=== PATIENT | male | born 2000 | race Two or more races ===

== ENCOUNTER 2024-07-10 16:57 | Emergency (ER) | payer MEDICAID, SELFPAY ==
[2024-07-10 17:19] VITALS: BP 140/81; PULSE 91; RESP 18; TEMP 37.1; O2SAT 96
--- NOTE | 2024-07-10 17:19 | XR_ITS ---
Examination: CT abdomen and pelvis without contrast. Coronal 3-D reconstructions. Sagittal 2-D reconstructions. Date and time of exam:July 10, 2024 1751 hrs. Indications: Generalized abdominal pain with vomiting, blood in stools beginning 4 days ago CTDI: vol (mGy): 5.01 DLP: (mGycm): 293 Technique: Axial images of the abdomen have been obtained, 3 mm slice thickness Intravenous contrast material has not been administered. Low dose protocols were performed. One or more of the following dose reduction techniques were used; automated exposure control, adjustment of the mA and/or KV according to patient size, use of iterative reconstruction technique. Findings: Fatty liver, no focal liver lesions No gallstones Spleen pancreas adrenal glands are unremarkable No renal or ureteral calculi, no hydronephrosis No bowel obstruction Normal appendix No diverticulitis Urinary bladder intact No prostatomegaly Impression: No acute process in the abdomen or pelvis
--- NOTE | 2024-07-10 17:19 | PD.EDRME ---
Rapid Medical Screening Exam RME Arrival date/time: 07/10/24 16:57 23-year-old male presents the emergency department complaints of abdominal pain Chief Complaint: Abdominal Pain Time Seen by Provider: 07/10/24 17:08 Vital signs: Vital Signs Temperature 98.8 F 07/10/24 17:19 Pulse Rate 91 07/10/24 17:19 Respiratory Rate 18 07/10/24 17:19 Blood Pressure 140/81 H 07/10/24 17:19 Pulse Oximetry (%) 96 07/10/24 17:19 Oxygen Delivery Method Room Air 07/10/24 17:19
[2024-07-10 17:57] LABS: Basophils % (Auto) 0 % (0-2.5); Eosinophils # (Auto) 0.1 Thou/mm3 (0.0-0.5); Eosinophils % (Auto) 1 % (0-10); Hematocrit 45.8 % (41.0-53.0); Immature Granulocytes % (Auto) 0 % (0-0); Immature Granulocytes Auto 0.02 Thou/mm3 (0.00-0.00); Lymphocytes # (Auto) 1.3 Thou/mm3 (1.0-4.8); Lymphocytes % (Auto) 16 % (10-50); Mean Corpuscular HGB Conc 34.9 g/dl (31.0-37.0); Mean Corpuscular Hemoglobin 31.7 pg (25.0-35.0); Mean Corpuscular Volume 91 fL (80-100); Monocytes # (Auto) 0.7 Thou/mm3 (0.0-0.8); Monocytes % (Auto) 8 % (0-12); Neutrophils % (Auto) 75 % (37-80); Nucleated Red Blood Cell % 0 /100 WBC (0); Platelet Count 259 Thou/mm3 (140-440); Red Blood Count 5.04 Miln/mm3 (4.50-5.90)
[2024-07-10 18:20] LABS: Collection Type, Urine Clean Catch; RBC,Urine 0 /hpf (0-3); Squamous Epithelial Cell,Urine 0 /hpf (0-5); WBC,Urine 0 /hpf (0-5)
[2024-07-10 18:21] LABS: Alanine Aminotransferase 39 U/L (10-49); Albumin/Globulin Ratio 1.9 (1.2-2.2); Alkaline Phosphatase 108 U/L (46-116); Anion Gap 7 (7-16); Aspartate Amino Transferase 38 U/L (0-34); BUN/Creatinine Ratio 12 Ratio (12-20); Blood Urea Nitrogen 11 mg/dL (9-23); Calcium 10.1 mg/dL (8.3-10.6); Calcium (Corrected) 10.1 mg/dL (8.5-10.1); Carbon Dioxide 28.5 mMol/L (20.0-31.0); Chloride 102 mMol/L (98-107); Creatinine (Component) 0.9 mg/dL (0.6-1.3); Globulin 2.6 gm/dL (2.3-3.5); Glucose 151 mg/dL (74-106); Osmolality,Calculated 276 (275-295); Potassium 4.1 mMol/L (3.4-5.1); Sodium 137 mMol/L (136-145); Total Protein 7.6 gm/dL (5.7-8.2); eGFR > 60 See Note
[2024-07-10 18:36] LABS: Bilirubin,Urine Negative (Negative); Blood,Urine Negative (Negative); Clarity,Urine Clear (Clear/Hazy); Color,Urine Lt-Yellow (Lt Yel-Yel); Culture Indicated,Urine Not Indicated; Glucose, Urine Negative (Negative); Ketones,Urine Negative (Negative); Leukocyte Esterase,Urine Negative (Negative); Nitrite,Urine Negative (Negative); PH,Urine 6.5 (5.0-7.0); Protein,Urine Negative (Neg - Trace); Specific Gravity,Urine 1.022 (1.001-1.035)
[2024-07-10 18:47] LABS: Lipase 37 U/L (12-53)
--- NOTE | 2024-07-10 20:22 | PD.EDADULT ---
ED General RME/HPI General Chief complaint: Abdominal Pain Stated complaint: ABD PAIN, N/V, BLOOD IN STOOL Time Seen by Provider: 07/10/24 17:08 Arrival date/time: 07/10/24 16:57 CC: Abdominal pain HPI patient is been drinking alcohol for the past 4 days states he has periumbilical pain intermittent in nature the patient is awake alert oriented nontoxic-appearing not in any acute distress. States he has had intermittent nausea and diarrhea with no vomiting. Patient is afebrile nontoxic-appearing not in any acute distress RME / HPI RME / HPI narrative: 07/10/24 16:57 23-year-old male presents the emergency department complaints of abdominal pain Related Data Previous Rx's ?Medication ?Instructions ?Recorded famotidine 20 mg tablet 20 mg PO QDAY #20 tabs 07/10/24 Allergies Allergy/AdvReac Type Severity Reaction Status Date / Time No Known Allergies Allergy Verified 07/10/24 17:00 Review of Systems Review of Systems Narrative Review of Systems: GEN: No fever, no chills, no weight loss EYES: No discharge, no visual changes, no pain HEENT: No ear pain, no congestion, no sore throat PULM: No shortness of breath, no cough, no congestion CV: No chest pain, no dyspnea on exertion, no palpitations GI: No nausea, no vomiting, no diarrhea, + pain, no constipation : No frequency, no urgency, no dysuria MUSC/SKEL: No joint pain, no back pain SKIN: No rash PSYCH: No hallucinations, no depression HEME/LYMPH: No easy bleeding or bruising tendencies NEURO: No weakness, no headache Past Medical History Social History SMOKING STATUS: Never smoker ED Exam Narrative Physical exam: [General: Not in any acute distress Head normocephalic HEENT: Within acceptable limits Neck is supple nontender Chest equal chest rise nontender to palpation Respiratory: Clear to auscultation no wheezes crackles or rubs CV: Rate rhythm is regular no murmurs rubs or clicks Abdomen is flat, soft nontender no masses positive bowel sounds all 4 quadrants Back: No CVA tenderness no spinous process tenderness from cervical spine thoracic and lumbar spine Skin: Intact no petechiae rash induration ulceration or crepitus Extremities: Moving all extremity against resistance cap refill less than 2 seconds neurosensory intact Neuro: Awake alert oriented x3 Glascow coma 15 no focal deficits] Course Quality Measures none Orders Category Date Time Status CT abdomen pelvis wo con Stat Exams 07/10/24 17:19 Completed CBC Stat Lab 07/10/24 17:44 Completed Comprehensive Metabolic Panel Stat Lab 07/10/24 17:44 Completed Lipase Stat Lab 07/10/24 17:44 Completed UA, C/S IF [Urinalysis, C/S if Indicated] Stat Lab 07/10/24 18:09 Completed Vital Signs Vital signs: Vital Signs Temperature 98.8 F 07/10/24 17:19 Pulse Rate 91 07/10/24 17:19 Respiratory Rate 18 07/10/24 17:19 Blood Pressure 140/81 H 07/10/24 17:19 Pulse Oximetry (%) 96 07/10/24 17:19 Oxygen Delivery Method Room Air 07/10/24 17:19 MDM Patient data External records reviewed:: [facility] previous records Clinical information provided by:: patient Social determinants that could affect healthcare access:: none Patient has the following chronic illnesses:: Possible alcoholism How is presenting disease/condition affected by chronic disease/condition?: exacerbated by Evaluation data The following diagnostics were reviewed and interpreted by me:: lab results and radiology exam(s) Lab and/or radiology exams considered but not ordered:: CT shows no acute finding in the abdomen that requires emergent or immediate intervention as read by radiology CBC shows no acute leukocytosis anemia thrombocytopenia CMP shows no acute electrolyte imbalances renal impairment transaminitis or T. bili elevation lipase is normal Interpretation Summary: Abdominal pain suspect gastritis Medications Medications considered but not ordered:: None Medication administrations:: None Consultations Consultation(s) initiated? (list below): No Diagnosis Differential Diagnosis ED Complaint MDM: Gastritis pancreatitis cholelithiasis Most likely diagnosis given after review of the tests above:: Gastritis Admission Indicated Admission indicated?: not indicated Explain why admission is indicated or not indicated:: Stable for outpatient follow-up Admission Request Was there a request for admission?: No Disposition Plan Disposition Plan: Discharge Discharge Attestation Discharge Attestation: The patient and all family members were given an opportunity to ask questions and understood the discharge instructions. Discharge instructions specifically effects, indications for sooner follow up or return to the emergency department, and the expected course of current diagnosis. Patient condition: Stable Medical Decision Making Differential Diagnosis Differential Diagnosis: Gastritis pancreatitis cholelithiasis Lab Data 07/10/24 17:44 07/10/24 17:44 Labs: Lab Results 07/10/24 07/10/24 Range/Units 17:44 18:09 WBC 8.0 (3.8-10.6) Thou/mm3 RBC 5.04 (4.50-5.90) Miln/mm3 Hgb 16.0 (13.5-16.0) g/dL Hct 45.8 (41.0-53.0) % MCV 91 (80-100) fL MCH 31.7 (25.0-35.0) pg MCHC 34.9 (31.0-37.0) g/dl RDW Std Deviation 40.0 (35.1-43.9) fL Plt Count 259 (140-440) Thou/mm3 Neut % (Auto) 75 (37-80) % Lymph % (Auto) 16 (10-50) % [place] % (Auto) 8 (0-12) % Eos % (Auto) 1 (0-10) % Baso % (Auto) 0 (0-2.5) % Neut # (Auto) 6.0 (1.8-7.7) Thou/mm3 Lymph # (Auto) 1.3 (1.0-4.8) Thou/mm3 [place] # (Auto) 0.7 (0.0-0.8) Thou/mm3 Eos # (Auto) 0.1 (0.0-0.5) Thou/mm3 Baso # (Auto) 0.0 (0.0-0.2) Thou/mm3 Immature Gran # (Auto) 0.02 H (0.00-0.00) Thou/mm3 Absolute Nucleated RBC 0.00 (0.00-0.00) Thou/mm3 Immature Gran % 0 (0-0) % Nucleated RBC % 0 (0) /100 WBC Sodium 137 (136-145) mMol/L Potassium 4.1 (3.4-5.1) mMol/L Chloride 102 (98-107) mMol/L Carbon Dioxide 28.5 (20.0-31.0) mMol/L Anion Gap 7 (7-16) BUN 11 (9-23) mg/dL Creatinine 0.9 (0.6-1.3) mg/dL Estim Creat Clear Calc Not Performed. eGFR > 60 (60 - ) See Note BUN/Creatinine Ratio 12 (12-20) Ratio Glucose 151 H (74-106) mg/dL Calculated Osmolality 276 (275-295) Calcium 10.1 (8.3-10.6) mg/dL Corrected Calcium 10.1 (8.5-10.1) mg/dL Total Bilirubin 1.0 (0.3-1.2) mg/dL AST 38 H (0-34) U/L ALT 39 (10-49) U/L Alkaline Phosphatase 108 (46-116) U/L Total Protein 7.6 (5.7-8.2) gm/dL Albumin 5.0 (3.5-5.0) gm/dL Globulin 2.6 (2.3-3.5) gm/dL Albumin/Globulin Ratio 1.9 (1.2-2.2) Lipase 37 (12-53) U/L Ur Collection Type Clean Catch Urine Color Lt-Yellow (Lt Yel-Yel) Urine Clarity Clear (Clear/Hazy) Urine pH 6.5 (5.0-7.0) Ur Specific [place] 1.022 (1.001-1.035) Urine Protein Negative (Neg - Trace) Urine Glucose (UA) Negative (Negative) Urine Ketones Negative (Negative) Urine Blood Negative (Negative) Urine Nitrite Negative (Negative) Urine Bilirubin Negative (Negative) Urine Urobilinogen (Auto) 2.0 (0.0-1.0) mg/dL Ur Leukocyte Esterase Negative (Negative) Urine RBC 0 (0-3) /hpf Urine WBC 0 (0-5) /hpf Ur Squamous Epith Cells 0 (0-5) /hpf Urine Bacteria None (None) Ur Culture Indicated? Not Indicated Discharge Plan Plan Patient Disposition: HOME (Self Care) Patient condition on transfer: Stable Prescriptions/Referrals Prescriptions/Med Rec: New famotidine 20 mg tablet 20 mg PO QDAY Qty: 20 0RF Referrals: Isiah Luz MD [Primary Care Provider] - In 1 week Problem List Clinical Impression: Gastritis Patient/Caregiver Discharge Instructions Print Language: French Stand Alone Forms: Larisa Award Info., Patient Portal Info Letter, Work/School Release PA/[employer]IDENTIAL [employer] Supervising Physician PA/RESIDENTIAL [employer] Supervising Physician: Nas Kohli ENP
[2024-07-10 20:31] VITALS: BP 127/64; PULSE 74; RESP 19; TEMP 36.7; O2SAT 99
== END 2024-07-10 20:32 | disposition home or self-care (01) ==
PROVIDERS: Nurse Practitioner Primary Care; Emergency Provider Emergency Medicine; PCP Family Medicine
DX: K29.70 Gastritis, unspecified, without bleeding (principal)
CPT/HCPCS: 36415; 74176; 80053; 81001; 83690; 85025; 99284